=== PATIENT | female | born 1975 | race Caucasian/White ===

== ENCOUNTER 2019-02-19 16:15 | Inpatient (IN) | payer OTHER ==
[~2019-02-19] VITALS: Ht 170.2 cm; Wt 81.6 kg
[2019-04-09] MEDS ORDERED: DIOVAN40 MG PO (11:09)
[2019-04-09] MEDS ORDERED: ALEVE220 M1 PO (11:09)
[2019-04-09] MEDS ORDERED: NORFLEX PO (11:10)
[2019-04-09] MEDS ORDERED: ALLEGRA ALLERG180 MG PO (11:10)
[2019-04-09] MEDS ORDERED: INTRINSI B12-F1 EACH PO (11:11)
[2019-04-15] MEDS ORDERED: NORFLEX100MG PO (08:30)
== END 2019-04-17 17:04 | DRG 470 ==
LOC: SURG 04-09 10:00 → O/R 04-15 05:50 → SURG 04-15 10:00
PROVIDERS: ADMIT Orthopaedic Surgery
PROC: 0SR901Z Replacement of Right Hip Joint with Metal Synthetic Substitute, Open Approach (ICD-10-PCS; principal; 2019-04-15 11:30)
DX: M16.11 Unilateral primary osteoarthritis, right hip (principal); D62 Acute posthemorrhagic anemia; M24.651 Ankylosis, right hip; Z96.641 Presence of right artificial hip joint